=== PATIENT | female | born 1990 | race African-American/Black ===

== ENCOUNTER 2017-05-21 09:59 | Day surgery (SDC) | payer OTHER ==
[2017-05-21] MEDS ORDERED: BUPIVACAINE 0.25%/EPI (SDV) 30 ML INJ ×2 (12:58→13:06)
[2017-05-21] MEDS ORDERED: SOD CHLORIDE 0.9% 1,000 ML IV (13:00)
[2017-05-21] MEDS ORDERED: ROCURONIUM 50 MG INJ (13:17)
[2017-05-21] MEDS ORDERED: LIDOCAINE 1% (MDV) 20 ML INJ (13:17)
[2017-05-21] MEDS ORDERED: MIDAZOLAM 1 MG/ML 2 ML INJ (13:17)
[2017-05-21] MEDS ORDERED: PROPOFOL 20 ML (13:17)
[2017-05-21] MEDS ORDERED: ONDANSETRON 4 MG INJ (13:17)
[2017-05-21] MEDS ORDERED: CEFAZOLIN 1 GM INJ (13:17)
[2017-05-21] MEDS ORDERED: DEXAMETHASONE 4 MG/ML 1 ML INJ (13:17)
[2017-05-21] MEDS ORDERED: FAMOTIDINE 20 MG INJ (13:17)
[2017-05-21] MEDS: BUPIVACAINE 0.5%/EPI (SDV) 30 ML INJ INJ (13:18)
[2017-05-21] MEDS: GENTAMICIN 80 MG INJ (13:19)
[2017-05-21] MEDS: POLYMYXIN/BACITRACIN 1L IRRIG (13:19)
[2017-05-21] MEDS: SODIUM CL BACTERIOSTATIC 30 ML INJ (13:25)
[2017-05-21] MEDS: BUPIVACAINE LIPOSOME/PF 266 MG/20 ML VIAL INFIL (14:03)
[2017-05-21] MEDS ORDERED: PHENYLephrine (100 MCG/ML) 5ML SYG (14:30)
[2017-05-21] MEDS ORDERED: morphine 2 MG INJ IV (14:30)
[2017-05-21] MEDS ORDERED: ONDANSETRON 4 MG INJ IV ×2 (14:30→15:00)
[2017-05-21] MEDS ORDERED: HYDROCODONE/APAP (5/325) TAB PO (14:30)
[2017-05-21] MEDS ORDERED: SUGAMMADEX SODIUM 200 MG/2 ML VIAL IV (14:30)
[2017-05-21] MEDS ORDERED: MEPERIDINE 25 MG INJ (14:41)
[2017-05-21] MEDS: MEPERIDINE 25 MG INJ IV (14:45)
[2017-05-21] MEDS: HYDROmorphONE (0.2 MG/ML) 10ML SYG IV (14:50)
[2017-05-21] MEDS ORDERED: HYDROmorphONE (0.2 MG/ML) 10ML SYG IV (15:00)
== END 2017-05-21 17:00 | disposition home or self-care (01) ==
LOC: SDS 09:59
DX: F64.8 Other gender identity disorders (principal)
CPT/HCPCS: 19340; 84703